=== PATIENT | female | born 2000 | race African-American/Black ===

== ENCOUNTER 2024-01-08 14:21 | Outpatient (CLI) | payer OTHER | END 2024-01-08 14:22 | disposition home or self-care (01) | LOC: CSHULT 14:21 | PROVIDERS: ATTEND Obstetrics & Gynecology | DX: O09.92 Supervision of high risk pregnancy, unspecified, second trimester (principal); Q24.8 Other specified congenital malformations of heart | CPT/HCPCS: 93306 ==